=== PATIENT | female | born 1960 | race Caucasian/White ===

== ENCOUNTER 2020-03-28 04:33 | Emergency (ER) | payer OTHER ==
[~2020-03-28] VITALS: Ht 160 cm; Wt 77.1 kg
[2020-03-28 04:48] VITALS: BP_SYST 189
--- NOTE | 2020-03-28 05:01 | NUR ---
Patient to ER bed 07 to gown for evaluation. Side rails up. Report given to IDRIS MIRANDA
--- NOTE | 2020-03-28 05:03 | NUR ---
Diaz koch in ED - 03/28/20 at 0510 by [email or web address] LIZZY VILLAREAL at bedside examining patient.
--- NOTE | 2020-03-28 05:03 | NUR ---
ER Dr. VILLAREAL at bedside examining patient.
--- NOTE | 2020-03-28 05:10 | NUR ---
PT WALK IN BIB SON. PT C/O RASH TO RIGHT SIDE OF BODY. PT DENIES ANY SOB OR CHEST PAIN. PT C/O OF ITCHING. PT HAS ALLERGY TO SHRIMP. PT STATES SHE WENT TO DINNER WITH SON AND GIRLFRIEND TO [employer] UNKNOWN IF SOUP HAD SHRIMP. PT ANO X4. PT RESPIRATIONS EVEN AND UNLABORED. BED LOCKED IN LOWEST POSITION. SAFETY PRECAUTIONS IN PLACE. WILL CONTINUE TO MONITOR.
[2020-03-28] MEDS ORDERED: FAMOTIDINE PF 20 MG/2 ML VIAL IVP ONE (05:15)
[2020-03-28] MEDS ORDERED: DIPHENHYDRAMINE INJ 50 MG/ML VIAL IVP ONE (05:15)
[2020-03-28] MEDS ORDERED: methylPREDNISolone SOD SUCC/PF 62.5 MG/ML VIAL IVP ONE (05:15)
--- NOTE | 2020-03-28 05:15 | NUR ---
# 20 gauge angiocath placed to RIGHT AC. Use of asceptic technique. Opsite placed over site. Blood return noted. Blood for lab drawn from site. Flushed with 10 cc of normal saline. No evidence of infiltration noted. Patient tolerated well.
--- NOTE | 2020-03-28 06:15 | NUR ---
PT LAYING IN BED. PT SLEEPING. NO SIGNS OR SYMPTOMS OF DISTRESS NOTED. WILL CONTINUE TO MONITOR'
[2020-03-28 07:19] VITALS: BP_SYST 189
--- NOTE | 2020-03-28 07:21 | NUR ---
Patient given written and verbal discharge instructions and verbalizes understanding. ER MD discussed with patient the results and treatment provided. Patient in stable condition. ID arm band removed. IV catheter removed intact and dressing applied, no active bleeding. Rx of Prednisone, Pepcid, Diphenhydramine and Epipen given. Patient educated on pain management and to follow up with PMD. Pain Scale 0/10. Opportunity for questions provided and answered. Medication side effect fact sheet provided.
== END 2020-03-28 07:19 | disposition home or self-care (01) ==
LOC: SED 04:33
DX: T78.40XA Allergy, unspecified, initial encounter (principal); Z91.013 Allergy to seafood; X58.XXXA Exposure to other specified factors, initial encounter
CPT/HCPCS: 96374; 96375; 99284; J1200; J2930; J3490

== ENCOUNTER 2020-03-29 06:06 | Emergency (ER) | payer OTHER ==
[~2020-03-29] VITALS: Ht 160 cm; Wt 77.1 kg
--- NOTE | 2020-03-29 06:44 | NUR ---
Patient to ER bed 6 to gown for evaluation. Side rails up.
[2020-03-29 06:45] VITALS: BP_SYST 155
[2020-03-29] MEDS ORDERED: DIPHENHYDRAMINE INJ 50 MG/ML VIAL IVP ONE (07:00)
[2020-03-29] MEDS ORDERED: FAMOTIDINE PF 20 MG/2 ML VIAL IVP ONE (07:00)
[2020-03-29] MEDS ORDERED: methylPREDNISolone SOD SUCC/PF 62.5 MG/ML VIAL IVP ONE (07:00)
--- NOTE | 2020-03-29 07:00 | NUR ---
ER DR. VILLAREAL AT THE BEDSIDE EVALUATING PT
--- NOTE | 2020-03-29 07:05 | NUR ---
# 20 gauge angiocath placed to RAC. Use of asceptic technique. Opsite placed over site. Blood return noted. Flushed with 10 cc of normal saline. No evidence of infiltration noted. Patient tolerated well.
--- NOTE | 2020-03-29 07:09 | NUR ---
PT PRESENTS FROM HOME WITH C/O HIVES AND FEELINGS OF AN ALLERGIC REACTION. WAS SEEN YESTERDAY FOR SAME ISSUE IN ER AND WAS GIVEN RX FOR EPI PEN AND STEROIDS WHICH SHE FILLED. AFTER RETURNING HOME SHE DID NOT HAVE IMPROVMENT AND STILL FEELS LIKE HER HIVES ARE NOT GETTING BETTER.
--- NOTE | 2020-03-29 07:23 | NUR ---
REPORT GIVEN TO IDRIS RUSSELL FOR CONTINUING CARE
[2020-03-29] MEDS ORDERED: EPINEPHrine 1 MG/ML AMP IM ONE (08:15)
--- NOTE | 2020-03-29 08:36 | NUR ---
Pt resting in [facility] at this time no distress
[2020-03-29 09:23] VITALS: BP_SYST 122
== END 2020-03-29 09:23 | disposition home or self-care (01) ==
LOC: SED 06:06
DX: L50.9 Urticaria, unspecified (principal); Z91.013 Allergy to seafood
CPT/HCPCS: 96372; 96374; 96375; 99284; J0171; J1200; J2930; J3490